=== PATIENT | female | born 1965 | race African-American/Black ===

== ENCOUNTER 2017-04-23 17:19 | Emergency (ER) | payer BC, OTHER ==
[~2017-04-23] VITALS: Ht 165.1 cm; Wt 79.8 kg
--- NOTE | ~2017-04-23 | EKG ---
[place] [address] [address] [facility] [employer] [place] [address] ELECTROCARDIOGRAM REPORT Name: DOUGLAS UMANA [id number] Admission: 04/23/17 Attend Phys: Discharge: 04/23/17 Date of : 67 Report #: [id number] THIS REPORT FOR: //name// [facility] ED Test Date: 2017-04-23 Test Time: 17:26:25 Pat Name: DOUGLAS UMANA Department: Room: Gender: F It Program Auditor: ENOC : 1965 Requested By: Tanmay Gonzalez Order Number: [id number] MD: Simon Major Measurements Intervals [place] Rate: 61 P: 40 MI: 186 QRS: 25 QRSD: 94 T: 33 QT: 427 QTc: 430 Interpretive Statements Sinus rhythm No significant abnormality Compared to ECG 12/20/2014 17:59:43 Sinus tachycardia no longer present ST (T wave) deviation no longer present Electronically Signed On 04-24-2017 9:02:30 WEED[place] by Simon Major [email or web address] <ELECTRONICALLY SIGNED> By: Simon Major MD, [facility] 04/24/17 0902 25 25 Simon Major MD, [facility] /EPI
[~2017-04-23 17:19] MED LIST: ANTIVERT25 MG PO; ATENOLOL 50MG T50 MG PO; DILTIAZEM 24HR240 MG PO; DIOVAN320 MG PO; FIORINAL WITH1 EACH PO; FLOMAX0.4 MG PO; HYDROCHLOROTH12.5 MG PO; HYDROXYCHLOROQ200 M1 PO; NAPROSYN500 MG PO; NORCO 5-325 TA1 EACH PO; PENICILLIN V P500 MG PO; POTASSIUM20 PO; PRILOSEC20 MG PO; PROTONIX40 M2 PO; VEETIDS 250MG250 M1 PO; [UNRECOGNIZED DRUG - REMARK]
[2017-04-23 18:38] LABS: ABSOLUTE NEUTROPHILS 3.6 thou/uL (1.4-8.2); BASOPHILS 0.9 % (0.0-2.0); EOSINOPHILS 2.8 % (0.0-3.0); HEMATOCRIT 35.5 % (37.0-47.0); HEMOGLOBIN 11.3 gm/dL (12.0-15.0); LYMPHOCYTES 42.4 % (24.0-44.0); MCH 23.3 pg (26.0-34.0); MCHC 31.9 g/dL (28.0-37.0); MCV 72.9 fL (80.0-100.0); MONOCYTES 6.2 % (1.0-8.0); PLATELET COUNT 243 thou/uL (150-400); POLYS 47.7 % (36.0-66.0); RBC 4.87 mil/uL (4.20-5.00); RDW 20.4 % (10.5-14.5); WBC 7.6 thou/uL (4.0-11.0)
[2017-04-23 18:47] LABS: ANION GAP 7 mmol/L (7-16); BUN 23 mg/dL (7-18); CALCIUM 9.1 mg/dL (8.5-10.1); CHLORIDE 107 mmol/L (98-107); CO2 31 mmol/L (21-32); GLUCOSE 82 mg/dL (74-106); POTASSIUM 3.6 mmol/L (3.5-5.1); SODIUM 145 mmol/L (136-145)
[2017-04-23 18:55] LABS: ALBUMIN 3.8 g/dL (3.4-5.0); MAGNESIUM 2.2 mg/dL (1.8-2.4); SGOT 14 U/L (15-37); SGPT 20 U/L (30-65); TOTAL BILIRUBIN 0.2 mg/dL (<0.1-1.0); TOTAL PROTEIN 7.7 g/dL (6.4-8.2); TROPONIN-I < 0.04 ng/mL (<0.06)
== END 2017-04-23 20:08 | disposition home or self-care (01) ==
LOC: ER 17:19
PROVIDERS: Emergency Medicine
DX: R00.2 Palpitations (principal); R42 Dizziness and giddiness; I10 Essential (primary) hypertension; E05.90 Thyrotoxicosis, unspecified without thyrotoxic crisis or storm

== ENCOUNTER 2017-12-25 17:20 | Emergency (ER) | payer BC, OTHER ==
[~2017-12-25] VITALS: Ht 170.2 cm; Wt 97.5 kg
[2017-12-25] MEDS ORDERED: NAPROSYN500 MG PO (17:44)
[2017-12-25] MEDS ORDERED: METHIMAZOLE5 MG PO (17:44)
[2017-12-25 18:25] LABS: ABSOLUTE NEUTROPHILS 3.9 thou/uL (1.4-8.2); BASOPHILS 0.3 % (0.0-2.0); EOSINOPHILS 2.3 % (0.0-3.0); HEMATOCRIT 38.3 % (37.0-47.0); HEMOGLOBIN 12.6 gm/dL (12.0-15.0); LYMPHOCYTES 34.2 % (24.0-44.0); MCH 25.7 pg (26.0-34.0); MCHC 32.8 g/dL (28.0-37.0); MCV 78.4 fL (80.0-100.0); MONOCYTES 6.7 % (1.0-8.0); PLATELET COUNT 197 thou/uL (150-400); POLYS 56.5 % (36.0-66.0); RBC 4.89 mil/uL (4.20-5.00); RDW 21.5 % (10.5-14.5); WBC 6.9 thou/uL (4.0-11.0)
[2017-12-25 18:27] LABS: CALCIUM 9.1 mg/dL (8.5-10.1); CREATININE 0.9 mg/dL (0.6-1.0); POTASSIUM 3.6 mmol/L (3.5-5.1)
[2017-12-25 18:58] LABS: ANISOCYTOSIS 1+; POLYCHROMASIA OCCASIONAL
[2017-12-25 18:59] LABS: LARGE PLATELETS RARE
[2017-12-25] MEDS ORDERED: REGLAN 10 MG TA10 MG PO (20:10)
[2017-12-25 20:46] VITALS: BP 157/80
== END 2017-12-25 20:48 | disposition home or self-care (01) ==
LOC: ER 17:20
PROVIDERS: Physician Assistant
DX: R51 Headache (principal); I10 Essential (primary) hypertension; E07.9 Disorder of thyroid, unspecified; Z87.891 Personal history of nicotine dependence

== ENCOUNTER → 2021-01-03 | Outpatient (CLI) | payer BC, OTHER ==
[~2021-01-03] MED LIST changes: +METHIMAZOLE5 MG PO; +REGLAN 10 MG TA10 MG PO
== END ==
LOC: SJCVCIMAG 11:35
PROVIDERS: ATTEND Internal Medicine Cardiovascular Disease
DX: I42.9 Cardiomyopathy, unspecified (principal); R06.00 Dyspnea, unspecified